=== PATIENT | male | born 1995 | race American Indian/Alaskan Native ===

== ENCOUNTER 2018-06-07 01:40 | Emergency (ER) | payer SELFPAY ==
[2018-06-07 01:45] VITALS: O2SAT 99
[2018-06-07] MEDS ORDERED: Aluminum Hydroxide/Magnesium Hydroxide Susp (30 mL) PO STA (02:39)
--- NOTE | 2018-06-07 02:41 | C.PDOC ---
History Of Present Illness 22 year old male presents to the ED for evaluation of abdominal pain which began earlier tonight. Patient states his co-worker gave him some spicy rice to eat, after which he had sudden onset of burning pain to his abdominal region. Patient was advised by his boss to present to the ED for evaluation. Patient denies fever, chills, vomiting and diarrhea. Time Seen by Provider: 06/07/18 01:43 Chief Complaint (Nursing): Abdominal Pain History Per: Patient History/Exam Limitations: no limitations Onset/Duration Of Symptoms: Hrs, Sudden Onset Current Symptoms Are (Timing): Still Present Location Of Pain/Discomfort: Epigastric Radiation Of Pain To:: None Quality Of Discomfort: "Pain" Associated Symptoms: denies: Fever, Chills, Nausea, Vomiting Additional History Per: Patient Past Medical History Reviewed: Historical Data, Nursing Documentation, Vital Signs Vital Signs: Last Vital Signs Temp 98.2 F 06/07/18 01:44 Pulse 70 06/07/18 01:44 Resp 20 06/07/18 01:44 BP 132/86 06/07/18 01:44 Pulse Ox 99 06/07/18 01:44 - Medical History PMH: No Chronic Diseases Surgical History: No Surg Hx Family History: States: Unknown Family Hx - Social History Hx Alcohol Use: No Hx Substance Use: No - Immunization History Hx Tetanus Toxoid Vaccination: No Hx Influenza Vaccination: No Hx Pneumococcal Vaccination: No Review Of Systems Constitutional: Negative for: Fever, Chills, Weakness Eyes: Negative for: Redness ENT: Negative for: Mouth Swelling Cardiovascular: Negative for: Chest Pain Respiratory: Negative for: Cough, Shortness of Breath Gastrointestinal: Positive for: Abdominal Pain (epigastric ). Negative for: Vomiting, Diarrhea Genitourinary: Negative for: Dysuria, Hematuria Musculoskeletal: Negative for: Back Pain Skin: Negative for: Rash Neurological: Negative for: Weakness, Numbness, Dizziness Physical Exam - Physical Exam Appears: Well, Non-toxic, No Acute Distress Skin: Normal Color, Warm, No Rash Head: Atraumatic, Normacephalic Eye(s): bilateral: Normal Inspection (no scleral icterus ), PERRL, EOMI Oral Mucosa: Moist Throat: Normal (no swelling or injection ), No Exudate, Other (airway patent ) Neck: Supple Chest: Symmetrical, No Deformity Respiratory: No Accessory Muscle Use, Other (normal inspiratory effort ) Gastrointestinal/Abdominal: Soft, Tenderness (mild, epigastric ), No Guarding, No Rebound Extremity: Normal ROM, Capillary Refill (less than 2 seconds ) Extremity: Bilateral: Atraumatic Pulses: Left Radial: Normal, Right Radial: Normal Neurological/Psych: Oriented x3, Cerebellar Signs (grossly intact ) ED Course And Treatment O2 Sat by Pulse Oximetry: 99 (on RA ) Pulse Ox Interpretation: Normal Medical Decision Making Medical Decision Making: Progress: Patient's symptoms are likely indicative of acid reflex. Maalox PO given. On reassessment, patient is resting comfortably, showing no signs of distress and is stable for discharge. I explained acid reflux to patient and advised him to follow up with his PMD within 1-2 days for further evaluation. Disposition Counseled Patient/Family Regarding: Diagnosis, Need For Followup, Rx Given - Disposition Referrals: [facility] [Outside] Disposition: HOME/ ROUTINE Disposition Time: 02:41 Condition: STABLE Prescriptions: Mag Hydrox/Aluminum Hyd/Simeth [Maalox Advanced Suspension] 30 ml PO TID #1 bottle Instructions: Dyspepsia (DC) Forms: [employer] ([place]), General Discharge Instructions - Clinical Impression Clinical Impression: Nonulcer dyspepsia - PA / TEMPORARY STAFF ACCOUNTANT / Resident Statement MD/DO has reviewed & agrees with the documentation as recorded. - Scribe Statement The provider has reviewed the documentation as recorded by the Scribe (Essence Banerjee) All medical record entries made by the Scribe were at my direction and personally dictated by me. I have reviewed the chart and agree that the record accurately reflects my personal performance of the history, physical exam, medical decision making, and the department course for this patient. I have also personally directed, reviewed, and agree with the discharge instructions and disposition.
[2018-06-07] MEDS ORDERED: Aluminum Hydroxide/Magnesium Hydroxide Susp (30 mL) ONE (02:52)
[2018-06-07 03:13] VITALS: BP 144/78; PULSE 89; RESP 18
[2018-06-07 03:15] VITALS: TEMP 98.6
== END 2018-06-07 03:13 | disposition home or self-care (01) ==
LOC: C.ER 01:40
DX: R10.13 Epigastric pain (principal)